=== PATIENT | female | born 1995 | race Asian ===

== ENCOUNTER 2016-11-01 03:00 | Inpatient (IN) | payer OTHER ==
[2016-11-01] VITALS (35 sets, daily range): BP systolic 101–153; BP diastolic 56–92; PULSE 75–130; TEMP 97.4–99.4
[2016-11-01 04:08] LABS: BASO % 0.4 % (0.0-2.0); EOS # 0.1 (0.0-0.7); EOS % 1.1 % (0-4.0); GRAN # 5.1 (1.4-6.5); GRAN % 59.1 % (42.2-75.2); HEMOGLOBIN 12.3 g/dl (12.5-16.0); LYMPH % 23.9 % (20.0-51.0); MEAN CELL VOLUME 90 fl (80.0-100.0); MEAN CORPUSCULAR HEMOGLOBIN 31 pg (27.0-31.0); MEAN CORPUSCULAR HGB CONC 35 g/dl (33.0-37.0); MEAN PLATELET VOLUME 10.3 fl (7.4-10.4); MONO # 1.1 (0.1-0.6); MONO % 13.4 % (1.7-9.3); PLATELET COUNT 234 K/mm3 (130-400); RED BLOOD COUNT 3.96 M/mm3 (4.10-5.30); REDCELL DISTRIBUTION WIDTH-CV 13.4 % (11.5-14.5); WHITE BLOOD COUNT 8.5 K/mm3 (4.8-10.8)
[2016-11-01 04:09] LABS: HEMATOCRIT 35.5 % (37.0-47.0)
[2016-11-01] MEDS ORDERED: PRENATAL1 TA7 PO (04:35)
[2016-11-01] MEDS ORDERED: PERCOCET 325 MG1 TA2 PO (08:40)
[2016-11-01] MEDS ORDERED: MOTRIN 800800 MG/TAB PO (08:40)
[2016-11-02 02:00] VITALS: BP 114/78; PULSE 96; TEMP 98.5
[2016-11-02 05:25] VITALS: BP 104/64; PULSE 92; TEMP 98.2
[2016-11-02 07:30] VITALS: BP 105/67; PULSE 86; TEMP 97.6
[2016-11-02 15:11] VITALS: BP 106/63; PULSE 100; TEMP 97.9
[2016-11-02 21:00] VITALS: BP 115/68; PULSE 100; TEMP 98.4
[2016-11-03 09:00] VITALS: BP 107/65; PULSE 85; TEMP 98.1
== END 2016-11-03 15:31 | disposition home or self-care (01) | DRG 775 ==
LOC: LDRO 03:00 → LDR 03:25 → OB 03:25
PROVIDERS: Obstetrics & Gynecology
PROC: 10E0XZZ Delivery of Products of Conception, External Approach (ICD-10-PCS; principal; 2016-11-01)
PROC: 0KQM0ZZ Repair Perineum Muscle, Open Approach (ICD-10-PCS; 2016-11-01)
DX: O70.1 Second degree perineal laceration during delivery (principal); O77.0 Labor and delivery complicated by meconium in amniotic fluid; Z37.0 Single live birth; Z3A.39 39 weeks gestation of pregnancy
CPT/HCPCS: J2590; J7120

== ENCOUNTER 2017-01-17 09:53 | Emergency (ER) | payer OTHER ==
[~2017-01-17] VITALS: Ht 165.1 cm; Wt 50.0 kg
[~2017-01-17 09:53] MED LIST: MOTRIN 800800 MG/TAB PO; PERCOCET 325 MG1 TA2 PO; PRENATAL1 TA7 PO
[2017-01-17 10:07] VITALS: TEMP 98.4
[2017-01-17] MEDS ORDERED: DIGESTIVE ENZYM1 TAB PO (10:09)
[2017-01-17 10:39] LABS: HEMOGLOBIN 13.8 g/dl (12.5-16.0); MEAN CELL VOLUME 88 fl (80.0-100.0); MEAN CORPUSCULAR HEMOGLOBIN 30 pg (27.0-31.0); MEAN CORPUSCULAR HGB CONC 34 g/dl (33.0-37.0); MEAN PLATELET VOLUME 9.9 fl (7.4-10.4); PLATELET COUNT 311 K/mm3 (130-400); RED BLOOD COUNT 4.64 M/mm3 (4.10-5.30); REDCELL DISTRIBUTION WIDTH-CV 12.3 % (11.5-14.5); WHITE BLOOD COUNT 15.2 K/mm3 (4.8-10.8)
[2017-01-17 10:54] LABS: ADD PATHOLOGY DIFF REVIEW NO
[2017-01-17 11:30] LABS: ADJUSTED CALCIUM 8.9 mg/dL (8.4-10.2); ALANINE AMINOTRANSFERASE 20 U/L (9-52); ALBUMIN 4.7 gm/dL (3.5-5.0); ALKALINE PHOSPHATASE 108 U/L (50-136); ANION GAP 12 mmol/L (7-16); BLOOD UREA NITROGEN 17 mg/dL (7-17); C-REACTIVE PROTEIN < 0.5 mg/dL (0.0-0.9); CALCIUM 9.5 mg/dL (8.4-10.2); CARBON DIOXIDE 24 mmol/L (22-30); CHLORIDE 104 mmol/L (98-107); CREATININE, serum 0.72 mg/dL (0.52-1.25); GLUCOSE 105 mg/dL (74-106); POTASSIUM 3.9 mmol/L (3.4-5.0); SODIUM 140 mmol/L (137-145); TOTAL PROTEIN 8.4 gm/dL (6.4-8.2)
[2017-01-17 12:00] LABS: BAND 26 % (0-10); BASOPHIL 1 % (0-2); NEUTROPHILS 51 % (42.0-75.2); TOTAL CELLS COUNTED 100
[2017-01-17 12:01] LABS: PLATELET ESTIMATE NORMAL (NORMAL)
[2017-01-17 12:17] VITALS: BP 103/66; PULSE 92
== END 2017-01-17 12:18 | disposition home or self-care (01) ==
LOC: COL.ER 09:53
PROVIDERS: Physician Assistant
DX: T62.91XA Toxic effect of unspecified noxious substance eaten as food, accidental (unintentional), initial encounter (principal); K52.1 Toxic gastroenteritis and colitis
CPT/HCPCS: J2405; J2550; J7030